=== PATIENT | male | born 1960 | race Caucasian/White ===

== ENCOUNTER 2017-06-29 21:42 | Emergency (ER) | payer OTHER ==
[2017-06-29 21:59] LABS: ADD MAN DIFF? NO
[2017-06-29] MEDS: IV NORMAL SALINE 1000ML BAG 1,000 ML IV ×2 (22:00)
[2017-06-29 22:01] LABS: BASO # 0.1 x10^3/uL (0.0-0.2); BASO % 1 % (0-3); EOS % 1 % (0-3); HEMATOCRIT 45.9 % (39.0-53.0); HEMOGLOBIN 15.9 g/dL (13.0-17.5); LYMPH # 1.6 x10^3/uL (1.0-4.8); LYMPH % 19 % (24-48); MEAN CORPUSCULAR HEMOGLOBIN 32 pg (25-35); MEAN CORPUSCULAR HGB CONC 35 g/dL (31-37); MEAN CORPUSCULAR VOLUME 93 fL (79-100); MONO # 0.5 x10^3/uL (0.0-1.1); MONO % 6 % (0-9); NEUT # 6.4 x10^3uL (1.8-7.7); NEUT % 74 % (31-73); PLATELET COUNT 199 x10^3/uL (140-400); RED BLOOD COUNT 4.96 x10^6/uL (4.30-5.70); WHITE BLOOD COUNT 8.7 x10^3/uL (4.0-11.0)
[2017-06-29] MEDS: fentaNYL PF VIAL 100 MCG/2 ML VIAL IV ×2 (22:04)
[2017-06-29] MEDS: DIPHTH,PERTUSS(ACELL),TET TOX 0.5 ML DISP.SYRIN. VAX IM ×2 (22:06)
[2017-06-29 22:08] LABS: ANION GAP 5 (6-14); BLOOD UREA NITROGEN 14 mg/dL (8-26); CALCIUM 9.1 mg/dL (8.5-10.1); CARBON DIOXIDE 31 mmol/L (21-32); CHLORIDE 104 mmol/L (98-107); CREATININE 1.2 mg/dL (0.7-1.3); GFR 62.9; GLUCOSE 116 mg/dL (70-99); POTASSIUM 3.8 mmol/L (3.5-5.1); SODIUM 140 mmol/L (136-145)
[2017-06-29 22:09] LABS: INR 0.9 (0.8-1.1)
[2017-06-29] MEDS: IOHEXOL 300 MG/ML 100ML VIAL. IV ×2 (22:25)
[2017-06-29] MEDS ORDERED: CONTRAST GIVEN MC ×2 (22:30)
[2017-06-29] MEDS: LIDOCAINE WITH 8.4% SOD BICARB 3 ML DISP.SYRIN. INJ ×2 (23:15)
== END 2017-06-29 23:52 | disposition home or self-care (01) ==
LOC: ER 21:42
DX: S21.112A Laceration without foreign body of left front wall of thorax without penetration into thoracic cavity, initial encounter (principal); W26.8XXA Contact with other sharp object(s), not elsewhere classified, initial encounter; Y93.89 Activity, other specified; Y99.8 Other external cause status; Y92.89 Other specified places as the place of occurrence of the external cause
CPT/HCPCS: 12001; 36415; 71045; 71260; 80048; 85025; 85610; 90471; 90715; 96361; 96374; 99285-25; J3010; J7030; Q9967

== ENCOUNTER → 2019-03-07 | Outpatient (CLI) | payer OTHER ==
[2017-06-29 23:37] VITALS: BP 133/89
--- NOTE | 2019-03-07 12:11 | KCIC ---
MRI Brain without contrast History: Gait abnormality, dysarthria Technique: Multiplanar, multisequential noncontrast MR imaging was performed of the brain. Comparison: None Findings: There is some motion degradation. There is no evidence of recent infarct or cytotoxic edema. The ventricles, sulci, and cisterns are within normal limits in size and configuration. There is no significant midline shift, intraaxial mass effect, or focal abnormal extra-axial fluid collection. There is no significant signal abnormality of the brain parenchyma. There is preservation of the major intracranial flow-voids at the skull base. There is mild patchy fluid of the left mastoid air cells.The cerebellar tonsils are normal in location. There is no significant abnormality of the pineal gland or pituitary gland. There are some mucous retention cysts of the right maxillary sinus, largest about 1.3 cm. There is mild bilateral ethmoid air cell and left maxillary sinus mucosal thickening. There is preserved marrow signal of the clivus. There is C3-4 degenerative disc disease. Impression: 1. There is no significant intracranial abnormality. 2. There is mild paranasal sinus mucosal thickening, also right maxillary sinus mucous cysts. There is mild patchy fluid of the left mastoid air cells. Electronically signed by: Ramón Mendez MD (03/07/2019 12:08 PM) [id number]
== END | disposition home or self-care (01) ==
LOC: KCIC MRI 09:57
PROVIDERS: ATTEND Psychiatry & Neurology Neurology with Special Qualifications in Child Neurology
DX: J34.1 Cyst and mucocele of nose and nasal sinus (principal); J34.89 Other specified disorders of nose and nasal sinuses; M50.31 Other cervical disc degeneration, high cervical region
CPT/HCPCS: 70551